=== PATIENT | male | born 1980 | race African-American/Black ===

== ENCOUNTER 2019-12-08 19:48 | Inpatient (IN) | payer MEDICAID ==
[~2019-12-08] VITALS: Ht 162.6 cm; Wt 62.6 kg
--- NOTE | 2019-12-08 19:58 | NUR ---
Pt bibRA c/o SOB x "few days." Per ems, pt was sat was in 80s, upon arrival pt sat 94% on RA hx Asthma; pt to bed 5, placed on monitor, +sob, placed on o2 non-rbr. o2 sat up >95%, pt able to communicate in full sentences, alert, awake, pending er provider anibal
[2019-12-08] MEDS ORDERED: IV NS 0.9% 1,000 ML IV ONE ×2 (20:10→21:10)
[2019-12-08] MEDS ORDERED: methylPREDNISolone SOD SUCC 125 MG/2ML VIAL ONE (20:27)
[2019-12-08 20:29] LABS: BASOPHILS # (AUTO) 0.1 /CMM (0.0-0.2); BASOPHILS % (AUTO) 0.2 % (0.0-2.0); HEMATOCRIT 37 % (39-51); HEMOGLOBIN 11.3 g/dL (13.5-17.5); LYMPHOCYTES # (AUTO) 1.7 /CMM (0.8-4.8); LYMPHOCYTES % (AUTO) 4.3 % (20.0-44.0); MEAN CORPUSCULAR HGB CONC 31 g/dl (31.0-36.0); MEAN CORPUSCULAR VOLUME 68 fL (80-96); MONOCYTES # (AUTO) 1.4 /CMM (0.1-1.30); MONOCYTES % (AUTO) 3.4 % (2.0-12.0); NEUTROPHILS # (AUTO) 37.3 /CMM (1.8-8.9); NEUTROPHILS % (AUTO) 92.1 % (43.0-81.0); PLATELET COUNT (AUTO) 358 /CMM (150-450); RED BLOOD CELL COUNT(AUTO) 5.39 MIL/uL (4.5-6.0)
[2019-12-08] MEDS ORDERED: methylPREDNISolone SOD SUCC 125 MG/2ML VIAL IV ONE (20:30)
--- NOTE | 2019-12-08 20:31 | NUR ---
Elizabeth arango in [facility] - 12/08/19 at 2133 by BARRETT Itzel JIMENEZ
[2019-12-08 20:34] LABS: WHITE BLOOD COUNT (AUTO) 40.4 K/uL (4.3-11.0)
[2019-12-08 20:39] LABS: CALCIUM, SERUM 8.8 mg/dL (8.5-10.1); CARBON DIOXIDE 25 mmol/L (21-32); CHLORIDE 96 mmol/L (98-107); CREATININE 2.1 mg/dL (0.6-1.3); GLUCOSE 101 mg/dL (74-106); POTASSIUM 4.1 mmol/L (3.5-5.1); SODIUM SERUM 131 mmol/L (136-145); UREA NITROGEN, BLOOD 37 mg/dL (7-18)
[2019-12-08 20:52] LABS: ALANINE AMINOTRANSFERASE 18 U/L (12-78); ALBUMIN 2.5 g/dL (3.4-5.0); ALKALINE PHOSPHATASE 95 U/L (46-116); ASPARTATE AMINOTRANSFERASE 23 U/L (15-37); B-TYPE NATRIURETIC PEPTIDE 212 PG/ML (0-125); BILIRUBIN,DIRECT 0.2 mg/dL (0.0-0.2); BILIRUBIN,TOTAL 0.5 mg/dL (0.2-1.0); TOTAL PROTEIN, SERUM 8.9 g/dL (6.4-8.2)
[2019-12-08 21:15] LABS: BAND % (MANUAL) 12 % (0.0-5.0); LYMPHOCYTES % (MANUAL) 6 % (16-48); MONOCYTES % (MANUAL) 2 % (0-11.0); NEUTROPHILS % (MANUAL) 80 (42-76)
[2019-12-08] MEDS ORDERED: IPRATROPIUM NEB FS 0.5 MG/2.5 ML AMPUL.NEB NEB ONE (21:30)
[2019-12-08] MEDS ORDERED: ALBUTEROL FS 2.5 MG/0.5 ML VIAL.NEB NEB ONE (21:30)
[2019-12-08] MEDS ORDERED: LEVOFLOXACIN 750 MG /D5W 150ML PIGGYBACK IV ONE (21:30)
[2019-12-08] MEDS ORDERED: IPRATROPIUM NEB FS 0.5 MG/2.5 ML AMPUL.NEB ONE (21:38)
[2019-12-08] MEDS ORDERED: ALBUTEROL FS 2.5 MG/0.5 ML VIAL.NEB ONE (21:38)
[2019-12-08 22:00] VITALS: BP 113/80
[2019-12-08] MEDS ORDERED: ACETAMINOPHEN 325 MG TABLET PO PRN (22:00)
[2019-12-08] MEDS ORDERED: MAGNESIUM HYDROXIDE 30 ML UDC PO PRN (22:00)
[2019-12-08] MEDS ORDERED: MAG HYDROX/AL HYDROX/SIMETH 30 ML UDC PO PRN (22:00)
[2019-12-08] MEDS ORDERED: IV NS 0.9% 1,000 ML IV SCH (22:00)
[2019-12-08] MEDS ORDERED: Z GUARD REMEDY 2 OZ OINT TP PRN (22:00)
[2019-12-08] MEDS ORDERED: HYDROCODONE/APAP 5/325MG 1 EACH TABLET PO PRN (22:00)
[2019-12-08] MEDS ORDERED: ONDANSETRON HCL/PF 4 MG/2 ML VIAL IVP PRN (22:00)
[2019-12-08] MEDS ORDERED: LEVOFLOXACIN 750 MG /D5W 150ML 150 ML IV ONE (22:07)
--- NOTE | 2019-12-08 22:22 | NUR ---
BED ASSIGNMENT 315-2
--- NOTE | 2019-12-08 22:31 | NUR ---
REPORT GIVEN TO BERNICE AHUMADA FOR [facility] PT KARLA BE TRANSPORTED TO 3RD FLOOR
[2019-12-08 22:50] VITALS: BP 113/80
--- NOTE | 2019-12-08 22:51 | NUR ---
PT TRANSPORTED TO 3RD FLOOR
--- NOTE | 2019-12-08 22:58 | NUR ---
RN ADMITTING NOTES ADMITTED A 39 Y/O MALE, TRANSPORTED FROM ER VIA GURNEY, ADMISSION PROCESS / HEAD TO TOE ASSESSMENT INITIATED. PATIENT IS AWAKE, ALERT ORIENTED X4, DENIES PAIN AT THIS TIME, ORIENTED TO UNIT, SAFETY MEASURES IN PLACE, BREATHING REGULAR SHALLOW BREATHING, VITAL SIGNS TAKEN AND RECORDED. SKIN INTACT WARM TO TOUCH. IV ACCESS ON HIS LEFT ANTECUBITAL INTACT AND PATENT, ALL NEEDS ANTICIPATED, WILL CONTINUE TO MONITOR.
--- NOTE | 2019-12-08 23:40 | NUR ---
RN NOTES SEEN AND EXAMINED BY DR. SHERWOOD, PATIENT'S LACTIC ACID IS 3.0. MD AWARE, NO NEW ORDERS AT THIS TIME.
--- NOTE | 2019-12-09 06:29 | NUR ---
RN NOTES ALL NEEDS ATTENDED AND MET, ABLE TO REST AND SLEPT AT INTERVALS, NO SIGNS OF DISTRESS, DENIES PAIN AND OR DISCOMFORT AT THIS TIME, SAFETY MEASURES IN PLACE, ASPIRATION PRECAUTION EMPHASIZE, IV INFUSING WELL. KEEP COMFORTABLE.
--- NOTE | 2019-12-09 07:25 | NUR ---
MS/RN OPENING NOTES RECEIVED PATIENT LYING ON BED COMFORTABLY. PATIENT IS AWAKE AND ORIENTED X4. NO SIGNS OF DISTRESS, COMPLAINED OF PAIN AT THE RATE OF 5/10 PATIENT VERBALIZED THAT PAIN TOLERABLE. SAFETY MEASURES IN PLACE, ASPIRATION PRECAUTION EMPHASIZE, IVF OF NS 1L AT 100ML/HR ON AND INFUSING WELL. BED IN LOWEST POSITION SIDE RAILS UP X2. CALL LIGHT WITHIN REACH.WILL CONTINUE TO MONITOR.
[2019-12-09 08:22] VITALS: BP 124/84
[2019-12-09] MEDS ORDERED: ALBUTEROL FS 2.5 MG/3 ML VIAL.NEB NEB PRN (09:00)
[2019-12-09] MEDS ORDERED: IPRATROPIUM NEB FS 0.5 MG/2.5 ML AMPUL.NEB NEB PRN (09:00)
--- NOTE | 2019-12-09 09:09 | NUR ---
MS/RN NOTES MRSA SCREENING ON THE LEFT NOSTRIL, SAMPLE WAS SENT TO LAB.
[2019-12-09 09:24] LABS: BASOPHILS % (AUTO) 0.1 % (0.0-2.0); HEMATOCRIT 34 % (39-51); HEMOGLOBIN 10.6 g/dL (13.5-17.5); LYMPHOCYTES # (AUTO) 0.8 /CMM (0.8-4.8); LYMPHOCYTES % (AUTO) 3.1 % (20.0-44.0); MEAN CORPUSCULAR HGB CONC 31 g/dl (31.0-36.0); MEAN CORPUSCULAR VOLUME 68 fL (80-96); MONOCYTES # (AUTO) 0.3 /CMM (0.1-1.30); NEUTROPHILS # (AUTO) 24.7 /CMM (1.8-8.9); NEUTROPHILS % (AUTO) 95.8 % (43.0-81.0); PLATELET COUNT (AUTO) 333 /CMM (150-450); RED BLOOD CELL COUNT(AUTO) 5.01 MIL/uL (4.5-6.0); WHITE BLOOD COUNT (AUTO) 25.8 K/uL (4.3-11.0)
[2019-12-09] MEDS: IV NS 0.9% 1,000 ML IV PRN ×2 (09:45→20:45)
[2019-12-09 09:46] LABS: CALCIUM, SERUM 8.6 mg/dL (8.5-10.1); CREATININE 1.3 mg/dL (0.6-1.3); MAGNESIUM 1.7 mg/dL (1.8-2.4); POTASSIUM 4.5 mmol/L (3.5-5.1)
[2019-12-09] MEDS ORDERED: MAGNESIUM OXIDE 400 MG TABLET PO ONE (11:00)
[2019-12-09] MEDS: NICOTINE PATCH (14MG) 14 MG PATCH.TD24 TD SCH (12:21)
--- NOTE | 2019-12-09 19:06 | NUR ---
MS/RN CLOSING NOTES PATIENT LYING ON THE BED COMFORTABLY. PATIENT IS ALERT AND ORIENTED X4. NO APPARENT DISTRESS NOTED. PATIENT HAS ON AND OFF PAIN. DENIES ANY PAIN OR DISCOMFORT AT THIS TIME. IVF OF NS1L AT 100ML/HR ON AND INFUSING WELL. SEEN AND EXAMINED BY MD WITH ORDERS MADE AND CARRIED OUT. ALL DUE MEDS WAS GIVEN ORDERED, NO ADVERSE REACTIONS. ALL NEEDS WAS ATTENDED. SAFETY PRECAUTION IN PLACED. BED IN LOWEST POSITION SIDE RAILS UP X2. CALL LIGHT WITH IN REACH. WILL ENDORSED TO MARKETING MANAGER FOR [facility].
--- NOTE | 2019-12-09 19:44 | NUR ---
RN NOTES RECEIVED PATIENT ASLEEP, NO SIGNS OF ACUTE DISTRESS, DOESN'T WANT TO BE BOTHERED, PATIENT IS REQUESTING TO JUST BE ABLE TO SLEEP THROUGHOUT THE NIGHT. ALL NEEDS ANTICIPATED, SAFETY MEASURES INPLACE, CALL LIGHT WITH IN EASY REACH. WILL CONTINUE TO MONITOR ACCORDINGLY.
[2019-12-09 20:00] VITALS: BP 116/64
[2019-12-09] MEDS: LEVOFLOXACIN 750 MG /D5W 150ML 750 MG in PREMIX 1 EA IV SCH (20:39)
--- NOTE | 2019-12-10 06:55 | NUR ---
RN NOTES ALL NEEDS ATTENDED, REFUSED MORNING LABS, WILL ENDORSE TO AM NURSE FOR CONTINUITY OF CARE.
--- NOTE | 2019-12-10 07:37 | NUR ---
rn opening notes Patient received on room air, no sob noted, a/o x4 and denies pain at this time. L AC 18 with NS @ 100 ml per hour. Bed at the lowest setting, call light within reach, side rails up x2.
[2019-12-10 07:48] LABS: HEMATOCRIT 31 % (39-51); HEMOGLOBIN 9.4 g/dL (13.5-17.5); LYMPHOCYTES # (AUTO) 2.2 /CMM (0.8-4.8); LYMPHOCYTES % (AUTO) 9.6 % (20.0-44.0); MEAN CORPUSCULAR HGB CONC 31 g/dl (31.0-36.0); MEAN CORPUSCULAR VOLUME 69 fL (80-96); MONOCYTES % (AUTO) 4.7 % (2.0-12.0); NEUTROPHILS # (AUTO) 19.3 /CMM (1.8-8.9); NEUTROPHILS % (AUTO) 85.7 % (43.0-81.0); PLATELET COUNT (AUTO) 363 /CMM (150-450); RED BLOOD CELL COUNT(AUTO) 4.48 MIL/uL (4.5-6.0); WHITE BLOOD COUNT (AUTO) 22.5 K/uL (4.3-11.0)
[2019-12-10 08:00] VITALS: BP 136/74
[2019-12-10 08:04] LABS: CALCIUM, SERUM 8.1 mg/dL (8.5-10.1); CREATININE 0.9 mg/dL (0.6-1.3); MAGNESIUM 1.7 mg/dL (1.8-2.4); POTASSIUM 4.4 mmol/L (3.5-5.1)
[2019-12-10] MEDS: NICOTINE PATCH (14MG) 14 MG PATCH.TD24 TD SCH (08:19)
[2019-12-10] MEDS ORDERED: Magnesium 1GM/D5W 100ML PREMIX 100 ML IV SCH (09:00)
--- NOTE | 2019-12-10 10:40 | NUR ---
Social service consult requested by MD for homelessness. Per MD notes and chart review, pt is a 39-year-old male history of homelessness and polysubstance abuse presented emergency room with gradually worsening shortness of breath over the past several days. He reports associated chills. No cough, sore throat, nasal congestion, or nausea. No known sick contacts. No recent travel. He also reports some pain in his right side that he describes as a spasm. He feels like his symptoms are similar to his asthma exacerbations in the past. In ER x-ray revealed right lower lobe pneumonia. TRAINING CONSULTANT met with the pt bedside. SW introduced self, explained her role and purpose of the visit. Pt is alert and oriented x 4. Pt is very pleasant and cooperative with TRAINING CONSULTANT. Pt reports he is homeless and has been for about a year since he left [place]. Pt reports, he missed his flight less than a year ago and has been homeless since. Pt reports to being staying at the [facility] Pt was receiving food stamps and GR but not anymore. Pt reports, he needs to reapply. TRAINING CONSULTANT encouraged pt to do so. Pt denies any alcohol use. Pt uses crystal meth and last used on 12/07 prior to admission to [facility]. Pt smokes cigarettes. Pt denies any history of psychiatric illness. TRAINING CONSULTANT provided pt with active listening and supportive counseling. Pt was offered winter ch[facility] placement, however pt declined. Pt was provided with a homeless packet which includes [facility] 8411-4741 Winter [facility] program list, [facility] located at [address] ; [place] [place], [address] [place] ; [facility] [place], [address] ; [facility] Homeless Resource Directory which includes food stamps, transitional housing, showers and hot meals etc; Mental Health clinics such as [facility] ; [facility] ; Health clinics;[facility] and Alcohol treatment centers such as [facility], ; [facility] Substance Abuse Hotline and [facility] . Pt will be provided with a TAP card upon discharge. Homeless pt waiver form to be signed by the pt upon discharge. No other social service needs are requested at this time. TRAINING CONSULTANT is available, if needed.
[2019-12-10 16:00] VITALS: BP 143/85
--- NOTE | 2019-12-10 17:46 | NUR ---
rn closing notes Patient remains on room air, no sob noted, patient a/o x4 with no pain at this time. L ac 18 with NS @ 100 ml per hour. Bed at the lowest setting, call light within reach, side rails up x2. Will give report to NOC RN bedside.
--- NOTE | 2019-12-10 19:45 | NUR ---
MS RN OPENING NOTES PATIENT RESTING IN BED COMFORTABLY; A/O X 4; NO SOB OR DISTRESS NOTED; BREATHING EVEN AND UNLABORED; L AC # 18 RUNNING NS @ 100 ML/HR, PATIENT TOLERATING IVF WELL; SAFETY PRECAUTIONS IMPLEMENTED; WILL CONTINUE TO MONITOR
[2019-12-10 20:00] VITALS: BP 132/69
[2019-12-10] MEDS: LEVOFLOXACIN 750 MG /D5W 150ML 750 MG in PREMIX 1 EA IV SCH (20:11)
[2019-12-10 20:48] VITALS: BP 132/69
--- NOTE | 2019-12-11 02:13 | NUR ---
MS RN NOTES PATIENT SLEEPING IN BED COMFORTABLY; BREATHING EVEN AND UNLABORED, NO SOB OR DISTRESS NOTED; L AC # 18 INTACT AND PATENT, FLUSHING WELL; NO S/S OF REDNESS OR INFILTRATION; PATIENT REQUESTED IVF TO BE STOPPED WHILE HE IS SLEEPING; HE IS AWARE OF THE IMPORTANCE OF IVF BUT VERBALIZED HE WOULD LIKE IT STOPPED WHILE HE SLEEPS SINCE HE BENDS HIS ARMS FREQUENTLY; ALL NEEDS RENDERED; SAFETY PRECAUTIONS IN PLACE; WILL ENDORSE KAYLEY TO BRANDYN CASTILLO.
--- NOTE | 2019-12-11 06:37 | NUR ---
MS RN CLOSING NOTES PATIENT RESTING IN BED A/O X 4. STABLE ON RA WITH BREATHING EVEN AND UNLABORED, SO SOB NOTED. NO SIGNS OF ACUTE DISTRESS. NO COMPLAINTS OF PAIN OR DISCOMFORT THROUGHOUT THE NIGHT. IV LOCATED ON L AC #18 BUT REFUSED IVF WHILE SLEEPING. SAFETY PRECAUTIONS IN PLACE WITH BED IN LOWEST POSITION, CALL LIGHT WITHIN REACH, BREAKS ON, AND SIDE RAILS UP X2. WILL ENDORSE TO ON COMING SHIFT ABOUT [facility].
[2019-12-11 07:21] LABS: BASOPHILS % (AUTO) 0.2 % (0.0-2.0); EOSINOPHILS % (AUTO) 0.1 % (0.0-6.0); HEMATOCRIT 35 % (39-51); HEMOGLOBIN 10.6 g/dL (13.5-17.5); LYMPHOCYTES # (AUTO) 1.8 /CMM (0.8-4.8); LYMPHOCYTES % (AUTO) 20.6 % (20.0-44.0); MEAN CORPUSCULAR HGB CONC 31 g/dl (31.0-36.0); MEAN CORPUSCULAR VOLUME 69 fL (80-96); MONOCYTES # (AUTO) 0.9 /CMM (0.1-1.30); MONOCYTES % (AUTO) 9.8 % (2.0-12.0); NEUTROPHILS # (AUTO) 6.1 /CMM (1.8-8.9); NEUTROPHILS % (AUTO) 69.3 % (43.0-81.0); PLATELET COUNT (AUTO) 429 /CMM (150-450); RED BLOOD CELL COUNT(AUTO) 5.03 MIL/uL (4.5-6.0); WHITE BLOOD COUNT (AUTO) 8.8 K/uL (4.3-11.0)
[2019-12-11 07:42] LABS: CALCIUM, SERUM 8.5 mg/dL (8.5-10.1); CREATININE 0.9 mg/dL (0.6-1.3); MAGNESIUM 1.7 mg/dL (1.8-2.4); POTASSIUM 4.4 mmol/L (3.5-5.1)
[2019-12-11 08:00] VITALS: BP 148/86
--- NOTE | 2019-12-11 08:00 | NUR ---
MS RN OPENING NOTES PATIENT RESTING IN BED A/O X 4. STABLE ON RA WITH BREATHING EVEN AND UNLABORED, SO SOB NOTED. NO SIGNS OF ACUTE DISTRESS. NO COMPLAINTS OF PAIN OR DISCOMFORT.IV LOCATED ON L AC #18 INTACT. SAFETY PRECAUTIONS IN PLACE WITH BED IN LOWEST POSITION, CALL LIGHT WITHIN REACH, BRAKES ON, AND SIDE RAILS UP X2.
[2019-12-11] MEDS ORDERED: Magnesium 1GM/D5W 100ML PREMIX PIGGYBACK IV ONE (08:30)
[2019-12-11] MEDS ORDERED: Magnesium 1GM/D5W 100ML PREMIX 100 ML IV SCH (09:00)
[2019-12-11] MEDS: NICOTINE PATCH (14MG) 14 MG PATCH.TD24 TD SCH (09:50)
[2019-12-11 16:00] VITALS: BP 157/75
--- NOTE | 2019-12-11 19:25 | NUR ---
MS RN OPENING NOTES: RECEIVED PT ON ROOM AIR AND IS TOLERATING WELL. NO SOB NOTED. NO S/S OF DISTRESS. PT ASLEEP AT THIS TIME AND RESTING COMFORTABLY. PT HAS IV ON L AC#18G AND IS PATENT AND INTACT. CURRENTLY H/L AT THIS TIME. CALL LIGHT WITHIN PT'S REACH. BED KEPT IN LOW, LOCKED POSITION, AND SIDE RAILS X 2UP. WILL CONTINUE TO MONITOR PT.
[2019-12-11 20:00] VITALS: BP 128/65
[2019-12-11] MEDS ORDERED: LEVOFLOXACIN (750 MG) 750 MG TABLET PO SCH (21:00)
--- NOTE | 2019-12-12 06:12 | NUR ---
MS RN CLOSING NOTES: ALL NEEDS WERE ATTENDED AND ANTICIPATED FOR . PT REMAINED IN BED ALL NIGHT. PT HAS IV ON L AC #18G AND IS PATENT AND INTACT. CURRENTLY H/L. PT ASLEEP AT THIS TIME AND RESTING COMFORTABLY. NO SOB NOTED. NO S/S OF DISTRESS. BED KEPT IN LOW, LOCKED POSITION, AND SIDE RAILS X 2UP. CALL LIGHT WITHIN REACH. WILL ENDORSE TO AM NURSE FOR [facility].
--- NOTE | 2019-12-12 07:13 | NUR ---
MS RN NOTES: ENDORSED TO RAQUEL Chou RN, FOR [facility].
[2019-12-12 07:23] LABS: CALCIUM, SERUM 8.7 mg/dL (8.5-10.1); CREATININE 0.9 mg/dL (0.6-1.3); MAGNESIUM 1.7 mg/dL (1.8-2.4); POTASSIUM 4.1 mmol/L (3.5-5.1)
[2019-12-12 08:00] VITALS: BP 121/73
--- NOTE | 2019-12-12 08:00 | NUR ---
MS RN OPENING NOTES PATIENT RESTING IN BED COMFORTABLY; A/O X 4; NO SOB OR DISTRESS NOTED; BREATHING EVEN AND UNLABORED; L AC # 18 RUNNING NS @ 100 ML/HR, PATIENT TOLERATING IVF WELL; SAFETY PRECAUTIONS IMPLEMENTED; WILL CONTINUE TO MONITOR.CALL LIGHT PLACED WITHIN REACH.
[2019-12-12] MEDS ORDERED: Magnesium 1GM/D5W 100ML PREMIX PIGGYBACK IV ONE (09:00)
[2019-12-12] MEDS ORDERED: MGSO4/D5W 100 ML IV SCH (09:00)
[2019-12-12] MEDS: NICOTINE PATCH (14MG) 14 MG PATCH.TD24 TD SCH (09:08)
[2019-12-12] MEDS ORDERED: MAGNESIUM OXIDE 400 MG TABLET PO ONE (10:30)
[2019-12-12 16:00] VITALS: BP 107/79
--- NOTE | 2019-12-12 18:00 | NUR ---
DISCHARGED PT HOME ([facility]) WITH STABLE V/S.TAP CARD GIVEN FOR TRANSPORTATION.IV H/L CAME OFF EARLIER WITH NO BLEEDING NOTED.ALL THE NECESSARY RESOURCES PROVIDED AND DISCUSSED BY [employer] DISTRIBUTION SYSTEM OPERATOR,ROSA ELENA.HOMELESS WAIVER SIGNED BY PT.PROVIDED PAIR OF SHOES AND PT HAS HIS COMPLETE CLOTHES ON UPON ADMISSION.PT STATED THAT HE WILL GO TO HIS FRIEND'S TENT TO GET HIS STUFF PRIOR TO GOING TO [facility].DENIES ANY PAIN OR DISTRESS.
== END 2019-12-12 17:56 | disposition home or self-care (01) | DRG 720 ==
LOC: ER 19:49 → TELE 22:26 → MED 12-09 05:55
PROVIDERS: ADMIT Internal Medicine; ATTEND Nurse Practitioner Acute Care
DX: A41.9 Sepsis, unspecified organism (principal); N17.0 Acute kidney failure with tubular necrosis; E43 Unspecified severe protein-calorie malnutrition; E87.2 Acidosis; J15.9 Unspecified bacterial pneumonia; E86.1 Hypovolemia; E87.1 Hypo-osmolality and hyponatremia; E83.42 Hypomagnesemia; D63.8 Anemia in other chronic diseases classified elsewhere; Z59.0 Homelessness; Z72.0 Tobacco use; J45.909 Unspecified asthma, uncomplicated
CPT/HCPCS: 36415; 71045-TC; 80048-TC; 80076-TC; 83540-TC; 83605-TC; 83735-TC; 83880; 84100-TC; 84484-TC; 85025-TC; 87081-TC; A4216; G0378; J1956; J2930; J3475; J7030